=== PATIENT | male | born 1960 | race Caucasian/White ===

== ENCOUNTER 2021-04-12 12:30 | Emergency (ER) | payer OTHER ==
[~2021-04-12] VITALS: Ht 180.3 cm; Wt 81.6 kg
== END 2021-04-12 13:21 | disposition home or self-care (01) ==
LOC: ED 12:30
DX: S05.02XA Injury of conjunctiva and corneal abrasion without foreign body, left eye, initial encounter (principal); X58.XXXA Exposure to other specified factors, initial encounter; Y93.89 Activity, other specified; Y92.89 Other specified places as the place of occurrence of the external cause; Y99.8 Other external cause status